=== PATIENT | female | born 1985 | race Caucasian/White ===

== ENCOUNTER 2016-08-11 12:27 | Emergency (ER) | payer MEDICAID ==
[~2016-08-11] VITALS: Ht 185.4 cm; Wt 100.1 kg
[2016-08-11 12:32] VITALS: BP 125/86
== END 2016-08-11 15:34 | disposition home or self-care (01) ==
LOC: ED 14:56
DX: M25.522 Pain in left elbow (principal); M25.562 Pain in left knee; M79.652 Pain in left thigh; F15.90 Other stimulant use, unspecified, uncomplicated; I10 Essential (primary) hypertension; F11.90 Opioid use, unspecified, uncomplicated